=== PATIENT | male | born 1995 | race Caucasian/White ===

== ENCOUNTER 2021-02-06 15:08 | Emergency (ER) | payer OTHER, BC ==
--- NOTE | 2021-02-06 15:56 | XRAY Report ---
PROCEDURE: Hand 3 View LT INDICATIONS: Trauma TECHNIQUE: 3 views of the hand(s) acquired. COMPARISON: None FINDINGS: Bones: Oblique linear lucency traverses the proximal aspect of the fourth metacarpal. No suspicious b keyshawn lesions. Soft tissues: No suspicious soft tissue calcifications. IMPRESSION: Fourth metacarpal fracture. Reviewed by: Emeterio Marion MD on 02/06/2021 3:54 PM PDT Approved by: Emeterio Marion MD on 02/06/2021 3:54 PM PDT Station ID: [id number]
--- NOTE | 2021-02-06 17:13 | ED Physician Documentation ---
History of Present Illness - Stated complaint Stated Complaint: LT HAND INJ - Chief complaint Chief Complaint: Ext Problem - Additonal information Additional information: 25-year-old male presents with acute left hand pain after a haley that he was using at work to lift a heavy couch fell against his hand. He has pain and mild swelling at the base and fifth metacarpals. Patient is right-hand dominant. No history of previous injury to this left hand. Review of Systems Constitutional: reports: Reviewed and negative Ears: reports: Reviewed and negative Nose: reports: Reviewed and negative Throat: reports: Reviewed and negative Cardiac: reports: Reviewed and negative Respiratory: reports: Reviewed and negative GI: reports: Reviewed and negative : reports: Reviewed and negative Skin: reports: Reviewed and negative Musculoskeletal: reports: Extremity pain (left hand) PD PAST MEDICAL HISTORY - Past Medical History Past Medical History: Yes Neuro: None Endocrine/Autoimmune: None : None HEENT: None Psych: None Musculoskeletal: None Derm: None - Past Surgical History Past Surgical History: Yes - Allergies Allergies/Adverse Reactions: Allergies Allergy/AdvReac Type Severity Reaction Status Date / Time No Known Drug Allergies Allergy Verified 02/06/21 15:14 - Social History Does the pt smoke?: Yes Smoking Status: Current every day smoker Does the pt drink ETOH?: Yes Does the pt have substance abuse?: Yes Substance Use and Type: Marijuana - Immunizations Immunizations are current?: No Immunizations: TDAP >10years/unknown PD ED PE EXPANDED - Extremities Extremities: Left hand (pain at base of 4th/5th metacarpals, no swelling. 2+ radial pulse. normal movement of wrsit and fingers) Results - Vitals Vitals: Vital Signs - 24 hr 02/06/21 15:14 Temperature 36.5 C Heart Rate 83 Respiratory 16 Rate Blood Pressure 130/86 H O2 Saturation 98 Oxygen O2 Source Room air - Rads (name of study) left hand Radiology: Final report received (Fourth metacarpal fracture) PD MEDICAL DECISION MAKING - ED course Complexity details: reviewed results, re-evaluated patient, d/w patient ED course: 25-year-old male presents emergency department for evaluation of a left hand injury sustained while at work today. X-ray imaging does reveal a fracture at the base of the fourth metacarpal. This gentleman was placed in an ulnar gutter splint and will be referred to orthopedics for follow-up. Appropriate labor and [id number]. Departure - Departure Disposition: 01 Home, Self Care Clinical Impression: Work related injury Fracture of metacarpal of left hand, closed Qualifiers: Encounter type: initial encounter Metacarpal bone: fourth Metacarpal location: base Fracture alignment: nondisplaced Qualified Code(s): S62.345A - Nondisplaced fracture of base of fourth metacarpal bone, left hand, initial encounter for closed fracture Condition: Stable Record reviewed to determine appropriate education?: Yes Instructions: ED Cast Care Fiberglass, ED Fx Hand Closed Ch Follow-Up: Sen Sarabia MD [Provider Admit Priv/Credential] - Comments: You are seen today in the ER for pain in the left hand after a workplace injury. The x-ray does show a very subtle hairline fracture at the base of your fourth metacarpal. You were placed in an ulnar gutter splint. The splint cannot get wet. If it does get wet please return to the ER to have it replaced. Please call the orthopedics department to follow-up this injury. Because this is a workplace injury always reference your claim number. I do think that Tylenol or ibuprofen will be adequate to control your pain. If you have worsening pain, fevers numbness or tingling in your fingers or feel the splint is not fitting well please return to the ER for a second look.
[2021-02-06 17:44] VITALS: BP 128/82
== END 2021-02-06 17:43 | disposition home or self-care (01) ==
LOC: ED 15:08
DX: S62.315A Displaced fracture of base of fourth metacarpal bone, left hand, initial encounter for closed fracture (principal); W20.8XXA Other cause of strike by thrown, projected or falling object, initial encounter; Y93.89 Activity, other specified; Y92.89 Other specified places as the place of occurrence of the external cause; Y99.0 Civilian activity done for income or pay; F17.200 Nicotine dependence, unspecified, uncomplicated
CPT/HCPCS: 29125; 99281; 99283

== ENCOUNTER 2021-02-07 11:11 | Emergency (ER) | payer OTHER, BC ==
[2021-02-07 11:18] VITALS: BP 159/82
== END 2021-02-07 11:50 | disposition home or self-care (01) ==
LOC: ED 11:11
DX: Z53.9 Procedure and treatment not carried out, unspecified reason (principal)

== ENCOUNTER 2021-02-13 13:38 | Outpatient (CLI) | payer OTHER ==
--- NOTE | 2021-02-13 16:17 | XRAY Report ---
PROCEDURE: Hand 3 View LT INDICATIONS: PAIN IN LEFT HAND TECHNIQUE: 3 views of the hand(s) acquired. COMPARISON: X-ray hand 02/06/2021 FINDINGS: Bones: There is a minimally displaced proximal fourth metacarpal shaft fracture, appearance is unchan ged.. No suspicious bony lesions. Soft tissues: No suspicious soft tissue calcifications. IMPRESSION: Unchanged nondisplaced proximal fourth metacarpal shaft fracture. Reviewed by: Chantale Riley MD on 02/13/2021 4:16 PM PDT Approved by: Chantale Riley MD on 02/13/2021 4:16 PM PDT Station ID: [id number]
== END 2021-02-13 23:59 | disposition home or self-care (01) ==
LOC: DI.N 13:38
PROVIDERS: ATTEND Orthopaedic Surgery
DX: S62.355A Nondisplaced fracture of shaft of fourth metacarpal bone, left hand, initial encounter for closed fracture (principal)

== ENCOUNTER 2021-03-25 13:15 | Outpatient (CLI) | payer OTHER ==
--- NOTE | 2021-03-25 16:50 | XRAY Report ---
PROCEDURE: Hand 3 View LT INDICATIONS: NONDISPLACED FX OF SHAFT OF L 4TH METACARPAL TECHNIQUE: 3 views of the hand(s) acquired. COMPARISON: Prior left hand series dated 02/13/2021 FINDINGS: Bones: Further healing of oblique fracture extending through the base and proximal shaft of the fourt h metacarpal bone fracture lucency is less distinct. Bridging callus is now noted.. No suspicious [place] lesions. Soft tissues: No suspicious soft tissue calcifications. IMPRESSION: Further healing of fourth metacarpal fracture. Reviewed by: BONY Andrews on 03/25/2021 4:49 PM PDT Approved by: Jose Luis Carlton on 03/25/2021 4:49 PM PDT Station ID: [id number]
== END 2021-03-25 23:59 | disposition home or self-care (01) ==
LOC: DI.N 13:15
PROVIDERS: ATTEND Orthopaedic Surgery
DX: S62.325D Displaced fracture of shaft of fourth metacarpal bone, left hand, subsequent encounter for fracture with routine healing (principal)